=== PATIENT | male | born 1955 | race Caucasian/White ===

== ENCOUNTER 2024-12-25 10:58 | Day surgery (SDC) | payer MEDICARE ==
[~2024-12-25] VITALS: Ht 170.2 cm; Wt 93.6 kg
[~2024-12-25 10:58] MED LIST: AMLO1TAB25 PO; ASPI81CH33 PO; GABA-1171 PO; LISI10TA22 PO; LR 1,000 ML IV SCH; MIDAZOLAM INJ 2MG/2ML VIAL As Ordered ONE; OMEP-173 PO; SIMV20TA22 PO; THERTAB52 PO
[2024-12-25] MEDS: CYCLOPENTOLATE 1% OPHTH SOLN 2ML BTL OD SCH (12:52)
[2024-12-25] MEDS: FLURBIPROFEN 0.03% OPHTH SOLN 2.5 ML OD SCH (12:52)
[2024-12-25] MEDS: TETRACAINE 0.5% OPHTH SOLN 4ML OD SCH (12:52)
[2024-12-25] MEDS: PHENYLEPHRINE 2.5% OPHTH SOL 2ML OD SCH (12:52)
[2024-12-25] MEDS ORDERED: fentaNYL 100 MCG/2 ML INJECTION As Ordered ONE (13:59)
[2024-12-25] MEDS: LIDOCAINE 1% SDV 5ML VIAL As Ordered ONE (14:12)
[2024-12-25] MEDS: CEFUROXIME 1MG/0.1ML INTRACAMERAL INJ As Ordered ONE (14:12)
[2024-12-25 14:22] VITALS: BP 150/86; TEMP 97.2; O2SAT 96
== END 2024-12-25 14:38 | disposition home or self-care (01) ==
LOC: M SDC 10:58
PROVIDERS: ATTEND Ophthalmology
DX: H25.12 Age-related nuclear cataract, left eye (principal); I10 Essential (primary) hypertension; E78.00 Pure hypercholesterolemia, unspecified; K21.9 Gastro-esophageal reflux disease without esophagitis; Z79.899 Other long term (current) drug therapy; Z87.891 Personal history of nicotine dependence; Z79.82 Long term (current) use of aspirin
CPT/HCPCS: 66984; J0697; J2250; J3010; V2632

== ENCOUNTER 2025-01-01 11:36 | Day surgery (SDC) | payer MEDICARE ==
[~2025-01-01] VITALS: Ht 170.2 cm; Wt 91.7 kg
[~2025-01-01 11:36] MED LIST changes: -MIDAZOLAM INJ 2MG/2ML VIAL As Ordered ONE
[2025-01-01] MEDS: TETRACAINE 0.5% OPHTH SOLN 4ML OD SCH (12:36)
[2025-01-01] MEDS: PHENYLEPHRINE 2.5% OPHTH SOL 2ML OD SCH (12:36)
[2025-01-01] MEDS: FLURBIPROFEN 0.03% OPHTH SOLN 2.5 ML OD SCH (12:36)
[2025-01-01] MEDS: CYCLOPENTOLATE 1% OPHTH SOLN 2ML BTL OD SCH (12:36)
[2025-01-01] MEDS ORDERED: MIDAZOLAM INJ 2MG/2ML VIAL As Ordered ONE (12:37)
[2025-01-01] MEDS ORDERED: fentaNYL 100 MCG/2 ML INJECTION As Ordered ONE (12:37)
[2025-01-01] MEDS: CEFUROXIME 1MG/0.1ML INTRACAMERAL INJ As Ordered ONE (13:37)
[2025-01-01] MEDS: LIDOCAINE 1% SDV 5ML VIAL As Ordered ONE (13:37)
[2025-01-01 13:55] VITALS: BP 133/86; TEMP 97.6; O2SAT 95
== END 2025-01-01 14:10 | disposition home or self-care (01) ==
LOC: M SDC 11:36
PROVIDERS: ATTEND Ophthalmology
DX: H25.11 Age-related nuclear cataract, right eye (principal); I10 Essential (primary) hypertension; E78.00 Pure hypercholesterolemia, unspecified; K21.9 Gastro-esophageal reflux disease without esophagitis; Z79.82 Long term (current) use of aspirin; Z79.899 Other long term (current) drug therapy; Z87.891 Personal history of nicotine dependence
CPT/HCPCS: 66984; J0697; J2250; J3010; V2632